=== PATIENT | female | born 1960 | race Asian ===

== ENCOUNTER 2017-01-02 05:30 | Day surgery (SDC) | payer OTHER ==
--- NOTE | 2017-01-01 09:26 | PREOPHP ---
DATE OF ADMISSION: 01/02/2017 HISTORY OF PRESENT ILLNESS: This 56-year-old patient is admitted for elective cataract surgery of t he right eye. Patient has had progressive deterioration of vision in both eyes over the past 5 years without prior history of eye disease or injury. The patient does have a history of noninsulin-depe ndent diabetes mellitus and systemic hypertension. CURRENT MEDICATIONS INCLUDE: 1. Metformin. 2. Hydrochlorothiazide. 3. Losartan. ALLERGIES: THERE ARE NO KNOWN ALLERGIES. PHYSICAL EXAMINATION: The visual acuity best corrected is 20/400 in both eyes. Slit lamp examinati on reveals dense anterior and posterior cortical opacities and a posterior subcapsular cataract pres ent in both eyes. Applanation tonometry is 18 mmHg. Examination of the retina is obscured by the a dvanced cataract formation. DIAGNOSIS: Cataract, right eye. PLAN: Cataract extraction with lens implant, right eye. The risks and alternatives to the surgery have been discussed with the patient as well as the inability to prognosticate due to difficulty to visualize the retina. The patient understands this and agrees to proceed with surgery in hopes of i mproving visual acuity which would lead to a greater ability to perform activities of daily living. Dictated By: RENEE DE LA VEGA/ATA Conf#: [id number] DID#: [id number]
[~2017-01-02] VITALS: Ht 152.4 cm; Wt 69.7 kg
[2017-01-02] VITALS (9 sets, daily range): BP systolic 148–168; BP diastolic 62–79; PULSE 64–67; RESP 14–18; Ht 152.4 cm; Wt 69.7 kg
[2017-01-02] MEDS ORDERED: TROPICAMIDE 1% 2 ML OPH RIGHT EYE SCH (06:00)
[2017-01-02] MEDS ORDERED: CIPROFLOXACIN 0.3% 2.5 ML OPH RIGHT EYE SCH (06:00)
[2017-01-02] MEDS ORDERED: DICLOFENAC 0.1% 2.5 ML OPH RIGHT EYE SCH (06:00)
[2017-01-02] MEDS ORDERED: CYCLOPENTOLATE/PHENYLEPH 2 ML OPH RIGHT EYE SCH (06:00)
[2017-01-02] MEDS ORDERED: CARBACHOL 0.01% 1.5 ML OPH INJ ONE (06:12)
[2017-01-02] MEDS ORDERED: DEXAMETHASONE 4 MG/ML 1 ML INJ ONE (06:12)
[2017-01-02] MEDS ORDERED: CEFAZOLIN 1 GM INJ ONE (06:12)
[2017-01-02] MEDS ORDERED: GENTAMICIN 80 MG INJ ONE (06:12)
[2017-01-02] MEDS ORDERED: HYALURONATE/CHONDROITIN 1ML OPH INJ ONE (06:13)
[2017-01-02] MEDS ORDERED: EPINEPHrine 1 MG INJ ONE (06:13)
[2017-01-02] MEDS ORDERED: LIDOCAINE 4% (MPF) 5 ML INJ ONE (06:19)
[2017-01-02] MEDS ORDERED: PROPOFOL 20 ML ONE (07:12)
[2017-01-02] MEDS ORDERED: LIDOCAINE 2% (SDV) 5 ML INJ ONE (07:12)
[2017-01-02] MEDS ORDERED: METF500T4 PO (07:13)
[2017-01-02] MEDS ORDERED: HYD25 PO (07:13)
[2017-01-02] MEDS ORDERED: LOSA25TA5 PO (07:13)
[2017-01-02] MEDS ORDERED: TETRACAINE 0.5% 4 ML OPH RIGHT EYE ONE (07:15)
[2017-01-02] MEDS ORDERED: DEXAMETHASONE 4 MG/ML 1 ML INJ INJ ONE (07:15)
[2017-01-02] MEDS ORDERED: CARBACHOL 0.01% 1.5 ML OPH INJ IO ONE (07:15)
[2017-01-02] MEDS ORDERED: HYALURONATE/CHONDROITIN 1ML OPH INJ IO ONE (07:15)
[2017-01-02] MEDS ORDERED: CEFAZOLIN 1 GM INJ INJ ONE (07:15)
[2017-01-02] MEDS ORDERED: LIDOCAINE 4% (MPF) 5 ML INJ INJ ONE (07:50)
[2017-01-02] MEDS ORDERED: BALANCED SALT SOLN 500 ML OPH IRRIG IRR ONE (07:51)
--- NOTE | 2017-01-02 08:21 | OPR ---
Date/Time of Note Date/Time of Note DATE: 01/02/17 TIME: 08:11 Operative Report Procedure Date: Jan 02, 2017 Preoperative Diagnosis cataract Postoperative Diagnosis cataract Operation Performed Cataract extraction with lens implant right eye Surgeon: RENEE KASPER MD Anesthesia: MAC Anesthesiologist: XANDER MORELAND Estimated Blood Loss: none Specimens none Grafts/Implants Lens implant used 911.0 dpt posterior chamber intraocular lens ([employer] model LI 61AO) Complications: None Pt Condition Post Procedure: stable Disposition: other (home) Procedure Description The patient was brought to the operating room on a gurney positioned appropriately attached electrocardiogram monitor and given oxygen via nasal cannula following this intravenous sedation was administered and then a local anesthetic was administered was given using lidocaine 4% given in lid block and retrobulbar injection at injection the patient was then prepped prepped and draped in the usual sterile manner speculum was inserted between the lids of the right eye and 2 paracentesis incisions were made in the nasal and temporal corneal limbal area using a Superblade following this a 3.0 mm keratome was used to enter the anterior chamber and a stepped clear corneal incision at the 12 o'clock position through this opening and irrigating cystotome was introduced the anterior chamber was filled with viscoelastic and an anterior capsulotomy was performed balanced salt solution was then injected beneath the capsular edge in order to do hydrodissection of the lens nucleus after this had been done phacoemulsification was performed using an ultrasonic handpiece initially creating for grooves following this additional disc of this was injected and then using a lens cracker the good segments of the lens nucleus were the these were then emulsified using a higher ultrasonic power setting after this had been completed the probe was removed from the anterior chamber and replaced with a separate probe used for removal of the lens cortical material lens cortex was removed from beneath the capsular within the form within the capsular bag. When it was noted that the capsular bag was clear additional disc disc was injected and then an 11.0 mm diopter posterior chamber intraocular lens was inserted within the bag it centered well and remained stable following this 1 10-0 nylon suture was placed across the wound and prior to tying the disc of this was evacuated from the anterior chamber Miostat was instilled into the anterior chamber to constrict the pupil in front of the lens implant the suture was tied the ends were cut short and the knot was buried on the corneal side prior to ending the surgery and injection a sub- conjunctival injection was administered in the inferior conjunctival fornix which contained a half a cc of dexamethasone and 1/2 cc of Ancef the speculum was then removed ciprofloxacin drops placed on the surface of the eye and the eye was patched the patient then left the operating room in satisfactory condition. RENEE KASPER MD Jan 02, 2017 08:20
== END 2017-01-02 09:05 | disposition home or self-care (01) ==
LOC: SDS 05:30
PROVIDERS: ATTEND Ophthalmology
DX: H25.041 Posterior subcapsular polar age-related cataract, right eye (principal); I10 Essential (primary) hypertension; E11.9 Type 2 diabetes mellitus without complications
CPT/HCPCS: 66984; 82962; J0171; J0690; J1100; J1580; V2632; Z7512; Z7610